=== PATIENT | female | born 1970 | race Caucasian/White ===

== ENCOUNTER 2017-03-14 14:57 | Emergency (ER) | payer OTHER ==
[~2017-03-14] VITALS: Ht 147.3 cm; Wt 59.9 kg
[~2017-03-14 14:57] MED LIST: BACTRIM,SEPT1 TABLET PO; NEXIUM40 MG PO; NORCO 5/3251 TABLET PO; OMEPRAZOLE40 M1 PO; bp pill
[2017-03-14] MEDS ORDERED: NORCO 5/3251 TABLET PO (19:07)
[2017-03-14] MEDS ORDERED: KEFLEX500 MG PO (19:07)
[2017-03-14 19:16] VITALS: BP 138/98
== END 2017-03-14 19:19 | disposition home or self-care (01) ==
LOC: EME 14:57
PROC: 0H9AXZZ Drainage of Inguinal Skin, External Approach (ICD-10-PCS; principal; 2017-03-14)
DX: L02.214 Cutaneous abscess of groin (principal)
CPT/HCPCS: 99281; 99284

== ENCOUNTER 2017-09-22 17:03 | Emergency (ER) | payer OTHER ==
[~2017-09-22] VITALS: Ht 147.3 cm; Wt 59.2 kg
[~2017-09-22 17:03] MED LIST changes: +KEFLEX500 MG PO
[2017-09-22 18:50] LABS: HEMATOCRIT 35.3 % (36.0-46.0); HEMOGLOBIN 11.8 G/DL (11.9-15.5); MCH 32.1 PG (29.0-34.0); MCHC 33.4 G/DL (30.0-36.0); MCV 95.9 FL (83-99); PLATELET COUNT 229 K/uL (156-360); RBC DIS.WIDTH-SD 49.7 % (39-53); RED BLOOD COUNT 3.68 M/uL (3.80-5.20); WHITE BLOOD COUNT 17.8 K/uL (4.1-10.2)
[2017-09-22 19:27] LABS: CHLORIDE 110 mEq/L (99-109); POTASSIUM 3.5 mEq/L (3.7-5.4); SODIUM 142 mEq/L (136-147)
[2017-09-22 19:28] LABS: GLUCOSE 116 mg/dL (70-99)
[2017-09-22 19:32] LABS: CREATININE 0.8 mg/dL (0.6-1.3); GFR ESTIMATE (CALCULATED) > 59 mL/min/
[2017-09-22 19:33] LABS: UREA NITROGEN (BUN) 12 mg/dL (9-23)
[2017-09-22 19:41] LABS: QUANTITATIVE HCG < 4.0 MIU/ML
[2017-09-22] MEDS ORDERED: PERCOCET 5/31 TABLET PO (21:44)
[2017-09-22] MEDS ORDERED: FLAGYL500 MG PO (21:44)
[2017-09-22] MEDS ORDERED: CIPRO500 MG PO (21:44)
[2017-09-22 21:55] VITALS: BP 126/83
== END 2017-09-22 21:56 | disposition home or self-care (01) ==
LOC: RME 17:03 → EME 17:03 → RME 21:56
PROVIDERS: Physician Assistant
PROC: 0H98XZZ Drainage of Buttock Skin, External Approach (ICD-10-PCS; principal; 2017-09-22)
DX: K61.0 Anal abscess (principal); L03.317 Cellulitis of buttock
CPT/HCPCS: 74177; 80048; 84702; 85027; 99281; 99285; J3010; J7030